=== PATIENT | male | born 1960 | race Caucasian/White ===

== ENCOUNTER 2016-05-13 12:17 | Emergency (ER) | payer OTHER ==
[~2016-05-13] VITALS: Ht 193 cm; Wt 87.7 kg
[2016-05-13 12:24] VITALS: BP 144/79; PULSE 94; RESP 16; TEMP 98.6; O2SAT 100
[2016-05-13] MEDS ORDERED: METO25TA3 PO (13:01)
[2016-05-13] MEDS ORDERED: OMEP20TA PO (13:01)
[2016-05-13] MEDS ORDERED: SODIUM CHLOR 0.9% 1000 ML INJ 1,000 ML IV SCH (13:32)
[2016-05-13 13:37] VITALS: O2SAT 97
[2016-05-13] MEDS ORDERED: SODIUM CHLORIDE 0.9% FLUSH 5 ML FLUSH IVF PRN (13:45)
[2016-05-13 13:52] LABS: HEMATOCRIT 42.3 % (39.0-51.0); MEAN CELL VOLUME 98.1 FL (80.0-100.0); MEAN CORPUSCULAR HEMOGLOBIN 33.4 PG (27.0-34.0); PLATELET COUNT 275 TH/MM3 (150-450); RED BLOOD COUNT 4.32 MIL/MM3 (4.50-5.90); RED CELL DISTRIBUTION WIDTH 12.4 % (11.6-17.2); WHITE BLOOD COUNT 6.5 TH/MM3 (4.0-11.0)
[2016-05-13 13:55] LABS: CHLORIDE 104 MEQ/L (98-107); HEMO FLAGS AUTO DIFF; POTASSIUM 3.8 MEQ/L (3.5-5.1); SODIUM (NA) 138 MEQ/L (136-145)
[2016-05-13 13:59] LABS: ANION GAP 9 MEQ/L (5-15); BICARBONATE 25.3 MEQ/L (21.0-32.0); BLOOD UREA NITROGEN 11 MG/DL (7-18)
[2016-05-13 14:02] LABS: ALT (GPT) 19 U/L (12-78); AST (GOT) 10 U/L (15-37); GLOMERULAR FILTRATION RATE 98 ML/MIN (>89)
[2016-05-13 14:04] LABS: TOTAL BILIRUBIN ADULT 0.6 MG/DL (0.2-1.0)
[2016-05-13 14:05] LABS: ALKALINE PHOSPHATASE 54 U/L (45-117)
[2016-05-13 14:15] LABS: BANDS 2 % (0-6); EOSINOPHILS 2 % (0-4); NEUTROPHIL # MANUAL DIFF 4.2 TH/MM3 (1.8-7.7); PLATELET ESTIMATE SMEAR NORMAL (NORMAL); PLATELET MORPHOLOGY NORMAL (NORMAL); POLYS (SEG NEUTROPHILS) 63 % (16-70); SCAN/DIFF FINAL DIFF MANUAL; WBC DIFF SAMPLE 100
--- NOTE | 2016-05-13 14:22 | RADHPO ---
EXAM DATE/TIME: 05/13/2016 13:57 [facility] COMPARISON: No previous studies available for comparison. INDICATIONS : Right lower quadrant pain and diarrhea x 1 week. ORAL CONTRAST: No oral contrast ingested. RADIATION DOSE: 11.29 CTDIvol (mGy) MEDICAL HISTORY : Gastroesophageal reflux disease. Hypertension. SURGICAL HISTORY : None. ENCOUNTER: Initial ACUITY: 1 week PAIN SCALE: 8/10 LOCATION: Right lower quadrant TECHNIQUE: Volumetric scanning of the abdomen and pelvis was performed. Using automated exposure control and ad justment of the mA and/or kV according to patient size, radiation dose was kept as low as reasonably achievable to obtain optimal diagnostic quality images. FINDINGS: LOWER LUNGS: The visualized lower lungs are clear. LIVER: Normal in size and shape except for a focal mass like projection off the medial aspect of the inferio r right lobe measuring up to 2.3 cm. This could represent a focal mass. No other distinct focal lesio ns are identified on this noncontrast exam. There is no dilation of the biliary tree. No calcified g allstones. SPLEEN: Normal size without lesion. PANCREAS: Within normal limits. KIDNEYS: Normal in size and shape. There is no mass, stone, or hydronephrosis. ADRENAL GLANDS: Within normal limits. VASCULAR: There is no aortic aneurysm. BOWEL/MESENTERY: No oral contrast was given limiting the sensitivity. There are several loops of non-dilated air conta ining small bowel present with several small air-fluid levels. There is no visualized wall thickening . There is questionable mild inflammatory change in the pelvis and lower abdomen with no focal fluid collection. Appears unremarkable. There is a normal appendix. ABDOMINAL WALL: Within normal limits. RETROPERITONEUM: There is no lymphadenopathy. BLADDER: No wall thickening or mass. REPRODUCTIVE: Within normal limits. INGUINAL: There is no lymphadenopathy or hernia. MUSCULOSKELETAL: Within normal limits for patient age. CONCLUSION: 1. Mildly nonspecific bowel gas pattern which could represent a mild ileus or gastroenteritis. There is questionable mild inflammatory change in the pelvis. 2. Subtle mass like projection off the lower medial aspect of the liver of unclear significance on th is noncontrast exam. This could represent an underlying mass. A repeat abdomen and pelvic CT is recommended with intravenous and oral contrast. Please allow adequa te time for the oral contrast to completely opacify the small bowel and colon. Dorian Garcia MD on May 13, 2016 at 14:12 Board Certified Radiologist. This report was verified electronically.
--- NOTE | 2016-05-13 14:37 | PD ---
HPI Chief Complaint: GI Complaint Time Seen by Provider: 13:05 Travel History International Travel<30 days: No Contact w/Intl Traveler<30days: No Traveled to known affect area: No History of Present Illness HPI 56-year-old male came to the emergency room with history of diarrhea for past 1 week. Patient says that every time he eats something it comes out as water. There is no blood. No fever or chills associated he also has diffuse abdominal pain for past 3-4 days. He says his appetite has been okay but every time he eats he is afraid that he starts getting diarrhea. He has been occasionally nauseous as well. PFSH Past Medical History Narrative Medical List of his past medical history as reviewed from the nursing note. Cardiovascular Problems: Yes (HTN) GERD: Yes Hypertension: Yes Medical other: Yes (MS) Tetanus Vaccination: < 5 Years Influenza Vaccination: No Social History Alcohol Use: Yes (~1 12 PK DAILY) Tobacco Use: Yes (1 PPD) Substance Use: No Allergies-Medications (Allergen,Severity, Reaction): Coded Allergies: Penicillin (Verified Allergy, Severe, TOLD CHILD, 05/13/16) Comments List of his allergies reviewed from the nursing note. Reported Meds & Prescriptions Reported Meds & Active Scripts Active Bentyl (Dicyclomine HCl) 10 Mg Cap 10 Mg PO TID PRN Cipro (Ciprofloxacin HCl) 500 Mg Tab 500 Mg PO BID 7 Days Flagyl (Metronidazole) 500 Mg Tab 500 Mg PO TID 7 Days Reported Omeprazole 20 Mg Tab 20 Mg PO DAILY Metoprolol Tartrate 25 Mg Tab 25 Mg PO BID Narrative Medication List of his home medications reviewed from the nursing note. Review of Systems Except as stated in HPI: all other systems reviewed are Neg Physical Exam Narrative GENERAL: Awake, alert, mild distress SKIN: Warm and dry. HEAD: Atraumatic. Normocephalic. EYES: Pupils equal and round. No scleral icterus. No injection or drainage. ENT: No nasal bleeding or discharge. Mucous membranes pink and moist. NECK: Trachea midline. No JVD. CARDIOVASCULAR: Regular rate and rhythm. No murmur appreciated. RESPIRATORY: No accessory muscle use. Clear to auscultation. Breath sounds equal bilaterally. GASTROINTESTINAL: Tender and guarding in the right lower quadrant with some rebound. Hepatic and splenic margins not palpable. MUSCULOSKELETAL: No obvious deformities. No clubbing. No cyanosis. No edema. NEUROLOGICAL: Awake and alert. No obvious cranial nerve deficits. Motor grossly within normal limits. Normal speech. PSYCHIATRIC: Appropriate mood and affect; insight and judgment normal. Data Data Last Documented VS Vital Signs Date Time Temp Pulse Resp B/P Pulse Ox O2 Delivery O2 Flow Rate FiO2 05/13/16 17:45 99.6 77 17 107/66 100 Room Air Orders Complete Blood Count With Diff (05/13/16 13:32) Comprehensive Metabolic Panel (05/13/16 13:32) Lipase (05/13/16 13:32) Urinalysis - C+S If Indicated (05/13/16 13:32) Ct Abd/Pel W/O Iv Contrast (05/13/16 13:32) Iv Access Insert/Monitor (05/13/16 13:32) Ecg Monitoring (05/13/16 13:32) Oximetry (05/13/16 13:32) Sodium Chlor 0.9% 1000 Ml Inj (Ns 1000 M (05/13/16 13:32) Sodium Chloride 0.9% Flush (Ns Flush) (05/13/16 13:45) C Diff Toxin Pcr (05/13/16 13:32) Ct Abd/Pel W Iv Contrast(Rout) (05/13/16 14:34) Oral Contrast - Adult (05/13/16 14:35) Diatrizoate Liq ( Gastromark Liq) (05/13/16 14:47) Iohexol 350 Inj (Omnipaque 350 Inj) (05/13/16 16:58) Labs Laboratory Tests Test 05/13/16 05/13/16 05/13/16 13:38 14:55 15:25 White Blood Count 6.5 TH/MM3 Red Blood Count 4.32 MIL/MM3 Hemoglobin 14.4 GM/DL Hematocrit 42.3 % Mean Corpuscular Volume 98.1 FL Mean Corpuscular Hemoglobin 33.4 PG Mean Corpuscular Hemoglobin 34.0 % Concent Red Cell Distribution Width 12.4 % Platelet Count 275 TH/MM3 Mean Platelet Volume 6.9 FL Neutrophils (%) (Auto) % Lymphocytes (%) (Auto) % Monocytes (%) (Auto) % Eosinophils (%) (Auto) % Basophils (%) (Auto) % Neutrophils # (Auto) TH/MM3 Lymphocytes # (Auto) TH/MM3 Monocytes # (Auto) TH/MM3 Eosinophils # (Auto) TH/MM3 Basophils # (Auto) TH/MM3 CBC Comment AUTO DIFF Differential Total Cells 100 Counted Neutrophils % (Manual) 63 % Band Neutrophils % 2 % Lymphocytes % 19 % Monocytes % 14 % Eosinophils % 2 % Neutrophils # (Manual) 4.2 TH/MM3 Differential Comment FINAL DIFF MANUAL Platelet Estimate NORMAL Platelet Morphology Comment NORMAL Sodium Level 138 MEQ/L Potassium Level 3.8 MEQ/L Chloride Level 104 MEQ/L Carbon Dioxide Level 25.3 MEQ/L Anion Gap 9 MEQ/L Blood Urea Nitrogen 11 MG/DL Creatinine 0.81 MG/DL Estimat Glomerular Filtration 98 ML/MIN Rate Random Glucose 96 MG/DL Calcium Level 8.4 MG/DL Total Bilirubin 0.6 MG/DL Aspartate Amino Transf 10 U/L (AST/SGOT) Alanine Aminotransferase 19 U/L (ALT/SGPT) Alkaline Phosphatase 54 U/L Total Protein 6.5 GM/DL Albumin 3.4 GM/DL Lipase 81 U/L Urine Collection Type CLEAN CATCH Urine Color YELLOW Urine Turbidity CLEAR Urine pH 5.5 Urine Specific [place] 1.028 Urine Protein TRACE mg/dL Urine Glucose (UA) NEG mg/dL Urine Ketones 15 mg/dL Urine Occult Blood TRACE Urine Nitrite NEG Urine Bilirubin NEG Urine Leukocyte Esterase NEG Urine RBC 0-3 /hpf Urine WBC 0-2 /hpf Urine Squamous Epithelial 0-5 /hpf Cells Urine Mucus FEW /lpf Microscopic Urinalysis Comment CULT NOT INDICATED Urine Collection Time 14:55 Stool C. difficile Toxin (PCR) NEGATIVE Stl C. difficile Toxin PRESUMPTIVE Epiderm 027 NEGATIVE MDM Medical Decision Making Medical Screen Exam Complete: Yes Emergency Medical Condition: Yes Medical Record Reviewed: Yes Differential Diagnosis Acute appendicitis, colitis, acute diverticulitis Narrative Course 3:17 PM patient was given IV fluid bolus and pain medications. Blood test results came back to be within normal limits. CT abdomen and pelvis was done without contrast and was read by the radiologist as abnormality no dyspnea the liver which would require to be clarified with IV and oral contrast. This has been ordered. I explained this to the patient and he understands. He is currently drinking the oral contrast. 3:46 PM awaiting for the repeat CAT scan of the abdomen and pelvis with contrast. Case has been signed over to the oncoming ER physician. Procedures EKG Prior to Arrival: No Scripts Dicyclomine (Bentyl)10 Mg Cap10 Mg PO TID PRN (Bowel Management) #10 CAP Ref 0 Prov:Vanita Fox MD 05/13/16 Ciprofloxacin (Cipro)500 Mg [id number] Mg PO BID 7 Days Ref 0 Prov:Vanita Fox MD 05/13/16 Metronidazole (Flagyl)500 Mg [id number] Mg PO TID 7 Days Ref 0 Prov:Vanita Fox MD 05/13/16 Willie Nguyen MD May 13, 2016 14:37
[2016-05-13] MEDS ORDERED: DIATRIZOATE MEGLUM/DIATRIZOATE SOD 9 ML CUP ONE (14:47)
[2016-05-13 15:03] VITALS: BP 140/77; PULSE 95; RESP 17; O2SAT 100
[2016-05-13 15:04] LABS: BLOOD, URINE TRACE (NEG); GLUCOSE,URINE NEG (NEG); KETONE, URINE 15 mg/dL (NEG); NITRITE,URINE NEG (NEG); PH, URINE 5.5 (5.0-8.5)
[2016-05-13 15:06] LABS: METHOD OF COLLECTION CLEAN CATCH; URINE COLOR YELLOW (YELLW/STRAW)
[2016-05-13 15:08] LABS: COMMENT (UR) CULT NOT INDICATED; CULTURE IF INDICATED CULT NOT INDICATED; MUCUS URINE FEW /lpf (OCC); RBC, URINE 0-3 /hpf (0-3); SQUAMOUS EPITHELIAL CELL URINE 0-5 /hpf (0-5); WBC, URINE 0-2 /hpf (0-5)
[2016-05-13] MEDS ORDERED: IOHEXOL 350 MG/ML 10 ML VIAL (for RAD DIAG) IV ONE (16:58)
--- NOTE | 2016-05-13 17:19 | RADHPO ---
EXAM DATE/TIME: 05/13/2016 16:52 [facility] COMPARISON: CT ABDOMEN & PELVIS W/O CONTRAST, May 13, 2016, 13:57. INDICATIONS : Right lower quadrant pain with diarrhea for one week. IV CONTRAST: 94 cc Omnipaque 350 (iohexol) IV ORAL CONTRAST: Prescribed oral contrast ingested. RADIATION DOSE: 14.25 CTDIvol (mGy) MEDICAL HISTORY : Hypertension. Gastroesophageal reflux disease. Multiple sclerosis. SURGICAL HISTORY : None. ENCOUNTER: Subsequent ACUITY: 1 week PAIN SCALE: 8/10 LOCATION: Right lower quadrant TECHNIQUE: Volumetric scanning of the abdomen and pelvis was performed. Using automated exposure control and ad justment of the mA and/or kV according to patient size, radiation dose was kept as low as reasonably achievable to obtain optimal diagnostic quality images. FINDINGS: Imaging through the lung bases demonstrate COPD changes. Examination of the liver demonstrates a 3.9 x 2.8 cm mass in the medial aspect of the right lobe of t he liver. There is a second lesion more inferiorly measuring 1.4 x 0.8 cm. The largest of these clear ly demonstrates peripheral nodular enhancement and would be most consistent with a hemangioma. The mo re inferior lesion is too small to definitively characterize. The spleen, pancreas, adrenal glands and kidneys are intact. There is no free intraperitoneal air. No free intraperitoneal fluid is identified. There is no retrop eritoneal lymphadenopathy. The aorta is normal in caliber. The visualized loops of small and large bowel in the upper abdomen are unremarkable. The post contrast imaging demonstrates a mild diffuse thickening of the distal ileum and extending up to the ileocecal valve. This is most consistent with a nonspecific enteritis. There is a small amoun t of free fluid within the pelvis. No iliac or inguinal adenopathy is seen. The visualized bony structures are intact. CONCLUSION: 1. The exam demonstrates a 3.9 x 2.8 cm lesion in the right lobe of the liver most consistent with he mangioma. 2. There is a second low attenuation lesion of the liver measuring approximately 1.4 x 0.8 cm. This i s too small to definitively characterize. 3. There is diffuse thickening of the ileum consistent with a nonspecific enteritis. There is a small amount of fluid within the pelvis. There are no findings to indicate bowel obstruction. Ap Pérez MD on May 13, 2016 at 17:12 Board Certified Radiologist. This report was verified electronically.
[2016-05-13 17:45] VITALS: BP 107/66; PULSE 77; RESP 17; TEMP 99.6; O2SAT 100
[2016-05-13] MEDS ORDERED: METR-1 PO (18:16)
[2016-05-13] MEDS ORDERED: CIPR-9 PO (18:16)
[2016-05-13] MEDS ORDERED: DICY10 PO (18:16)
--- NOTE | 2016-05-13 18:16 | PD ---
Physical Exam Narrative Patient signed out to me by Dr. Sawant to follow-up CAT scan and disposition. Please see her documentation for full details of the visit as well as complete history and physical. Briefly, patient is a 56-year-old male comes in complaining of diarrhea for the past week. He complains of lower abdominal cramping that seems to be worse when he has a bowel movement. Data Data Last Documented VS Vital Signs Date Time Temp Pulse Resp B/P Pulse Ox O2 Delivery O2 Flow Rate FiO2 05/13/16 17:45 99.6 77 17 107/66 100 Room Air Orders Complete Blood Count With Diff (05/13/16 13:32) Comprehensive Metabolic Panel (05/13/16 13:32) Lipase (05/13/16 13:32) Urinalysis - C+S If Indicated (05/13/16 13:32) Ct Abd/Pel W/O Iv Contrast (05/13/16 13:32) Iv Access Insert/Monitor (05/13/16 13:32) Ecg Monitoring (05/13/16 13:32) Oximetry (05/13/16 13:32) Sodium Chlor 0.9% 1000 Ml Inj (Ns 1000 M (05/13/16 13:32) Sodium Chloride 0.9% Flush (Ns Flush) (05/13/16 13:45) C Diff Toxin Pcr (05/13/16 13:32) Ct Abd/Pel W Iv Contrast(Rout) (05/13/16 14:34) Oral Contrast - Adult (05/13/16 14:35) Diatrizoate Liq ( Gastromark Liq) (05/13/16 14:47) Iohexol 350 Inj (Omnipaque 350 Inj) (05/13/16 16:58) Labs Laboratory Tests Test 05/13/16 05/13/16 05/13/16 13:38 14:55 15:25 White Blood Count 6.5 TH/MM3 Red Blood Count 4.32 MIL/MM3 Hemoglobin 14.4 GM/DL Hematocrit 42.3 % Mean Corpuscular Volume 98.1 FL Mean Corpuscular Hemoglobin 33.4 PG Mean Corpuscular Hemoglobin 34.0 % Concent Red Cell Distribution Width 12.4 % Platelet Count 275 TH/MM3 Mean Platelet Volume 6.9 FL Neutrophils (%) (Auto) % Lymphocytes (%) (Auto) % Monocytes (%) (Auto) % Eosinophils (%) (Auto) % Basophils (%) (Auto) % Neutrophils # (Auto) TH/MM3 Lymphocytes # (Auto) TH/MM3 Monocytes # (Auto) TH/MM3 Eosinophils # (Auto) TH/MM3 Basophils # (Auto) TH/MM3 CBC Comment AUTO DIFF Differential Total Cells 100 Counted Neutrophils % (Manual) 63 % Band Neutrophils % 2 % Lymphocytes % 19 % Monocytes % 14 % Eosinophils % 2 % Neutrophils # (Manual) 4.2 TH/MM3 Differential Comment FINAL DIFF MANUAL Platelet Estimate NORMAL Platelet Morphology Comment NORMAL Sodium Level 138 MEQ/L Potassium Level 3.8 MEQ/L Chloride Level 104 MEQ/L Carbon Dioxide Level 25.3 MEQ/L Anion Gap 9 MEQ/L Blood Urea Nitrogen 11 MG/DL Creatinine 0.81 MG/DL Estimat Glomerular Filtration 98 ML/MIN Rate Random Glucose 96 MG/DL Calcium Level 8.4 MG/DL Total Bilirubin 0.6 MG/DL Aspartate Amino Transf 10 U/L (AST/SGOT) Alanine Aminotransferase 19 U/L (ALT/SGPT) Alkaline Phosphatase 54 U/L Total Protein 6.5 GM/DL Albumin 3.4 GM/DL Lipase 81 U/L Urine Collection Type CLEAN CATCH Urine Color YELLOW Urine Turbidity CLEAR Urine pH 5.5 Urine Specific [place] 1.028 Urine Protein TRACE mg/dL Urine Glucose (UA) NEG mg/dL Urine Ketones 15 mg/dL Urine Occult Blood TRACE Urine Nitrite NEG Urine Bilirubin NEG Urine Leukocyte Esterase NEG Urine RBC 0-3 /hpf Urine WBC 0-2 /hpf Urine Squamous Epithelial 0-5 /hpf Cells Urine Mucus FEW /lpf Microscopic Urinalysis Comment CULT NOT INDICATED Urine Collection Time 14:55 Stool C. difficile Toxin (PCR) NEGATIVE Stl C. difficile Toxin PRESUMPTIVE Epiderm 027 NEGATIVE [facility] Supervised Visit with [facility]: No Narrative Course Patient had a CT done without contrast that was concerning with air-fluid levels. Repeat CT done with contrast shows enteritis. There is no evidence of obstruction. There is a hemangioma in the liver, which the patient says he has had for the past 20 years. Was informed of the other small lesion seen in the liver that was unable to be classified. He is advised follow-up with his primary doctor for repeat imaging to further investigate this mass. He understands and will follow-up with his doctor. Patient will be discharged with prescriptions for Cipro, Flagyl, Bentyl. Advised that he needs to drink enough fluids to compensate for whenever his body is putting out. Advised to return to the ED as needed for any worsening symptoms. Advised that he should not drink any alcohol with taking his antibiotics as he will become violently ill. Patient voices understanding and is comfortable with discharge at this time. Diagnosis Primary Impression: Enteritis Patient Instructions: Enteritis (ED), General Instructions Additional Instruction: Take all of your antibiotics. Make sure you do not drink alcohol while taking the antibiotics and for 72 hours after your last dose, you will become violently ill if you do. Drink plenty of fluids to compensate for what your body is putting out. You can take Bentyl as needed for pain. You have a hemangioma and another small lesion in your liver. You need to follow up with your doctor regarding these lesions. Return to the ED as needed for any worsening symptoms. Scripts Dicyclomine (Bentyl)10 Mg Cap10 Mg PO TID PRN (Bowel Management) #10 CAP Ref 0 Prov:Vanita Fox MD 05/13/16 Ciprofloxacin (Cipro)500 Mg [id number] Mg PO BID 7 Days Ref 0 Prov:Vanita Fox MD 05/13/16 Metronidazole (Flagyl)500 Mg [id number] Mg PO TID 7 Days Ref 0 Prov:Vanita Fox MD 05/13/16 Disposition: 01 DISCHARGE HOME Condition: Stable Vanita Fox MD May 13, 2016 18:16
[2016-05-13 18:36] LABS: C. DIFF EPI 027 PRESUMPTIVE NEGATIVE (NEGATIVE); C. DIFF TOXIN PCR NEGATIVE (NEGATIVE)
== END 2016-05-13 18:35 | disposition home or self-care (01) ==
LOC: PHED 12:17
DX: K52.9 Noninfective gastroenteritis and colitis, unspecified (principal); R10.84 Generalized abdominal pain; K76.9 Liver disease, unspecified; I10 Essential (primary) hypertension; G35 Multiple sclerosis; F17.200 Nicotine dependence, unspecified, uncomplicated; Z87.19 Personal history of other diseases of the digestive system
CPT/HCPCS: 74176; 74177; 80053; 81001; 83690; 85007; 85027; 87493; 96360; 99284; J7030; Q9963; Q9967